=== PATIENT | male | born 1960 | race Caucasian/White ===

== ENCOUNTER 2023-07-19 14:30 | Inpatient (IN) | payer MEDICAID ==
[~2023-07-19] VITALS: Ht 165.1 cm; Wt 68.1 kg
[2023-07-19 15:33] LABS: HEMATOCRIT. 32.6 % (42.0-52.0); HEMOGLOBIN. 11.1 g/dL (14.0-18.0); MEAN CORPUSCULAR HEMOGLOBIN 30.8 pg (28.0-32.0); MEAN CORPUSCULAR HGB CONC 33.9 g/dL (31.0-37.0); MEAN PLATELET VOLUME 8.6 fl (7.4-10.4); PLATELET 84 x1000/uL (130-400); RED BLOOD CELL COUNT 3.59 mill/uL (4.7-6.1); RED CELL DISTRIBUTION WIDTH 14.4 % (11.6-14.6); WHITE BLOOD COUNT 5.2 x1000/uL (4.5-11.0)
[2023-07-19 15:47] LABS: DIFFERENTIAL COMMENT 1
[2023-07-19 15:55] LABS: ALANINE AMINOTRANSFERASE 21 IU/L (10-49); ALBUMIN 4.1 g/dL (3.2-4.8); ASPARTATE AMINOTRANSFERASE 30 IU/L (<34); BILIRUBIN TOTAL 1.1 mg/dL (0.1-1.0); CALCIUM 8.2 mg/dL (8.7-10.4); CARBON DIOXIDE 23 mEq/L (21-32); CHLORIDE 94 mEq/L (98-107); CREATINE KINASE 273 IU/L (46-171); GLUCOSE 103 mg/dL (70-105); POTASSIUM 4.8 mEq/L (3.5-5.1); PROTEIN TOTAL 7.8 g/dL (6.0-8.3); SODIUM 136 mEq/L (136-145); TROPONIN I HIGH SENSITIVITY 51 ng/L (3.0-53); UREA NITROGEN BLOOD 41 mg/dL (9-23)
[2023-07-19 16:20] LABS: CREATININE 7.8 mg/dL (0.6-1.3)
[2023-07-19 16:26] LABS: PLATELET ESTIMATE DECREASED
[2023-07-19] MEDS ORDERED: SODIUM CHLORIDE 0.9% 500 ML IV ONE (17:45)
[2023-07-19] MEDS ORDERED: VANCOMYCIN 1G PREMIX 200 ML IV SCH (17:45)
[2023-07-19] MEDS ORDERED: CEFEPIME 1,000 MG in DEXTROSE 5% WATER 50 ML IV SCH (17:45)
[2023-07-20] VITALS (7 sets, daily range): BP systolic 116–152; BP diastolic 50–71; PULSE 81–92; RESP 16–26; TEMP 97.8–99.1
[2023-07-20] MEDS ORDERED: DEXTROSE 50% WATER 50ML SYRINGE IV PRN (06:30)
[2023-07-20] MEDS ORDERED: DOCUSATE SODIUM 250MG CAPSULE PO PRN (06:45)
[2023-07-20] MEDS ORDERED: CLONIDINE 0.1MG TABLET PO PRN (06:45)
[2023-07-20] MEDS: BLOOD SUGAR DIAGNOSTIC STRIP TEST SCH ×4 (06:49→20:31)
[2023-07-20] MEDS: INSULIN LISPRO 100 UNITS/ML SUBCUT SCH ×4 (07:20→20:32)
[2023-07-20 10:57] LABS: HEPATITIS B SURFACE ANTIGEN NEGATIVE (Negative); HEPATITIS C AB NON REACTIVE (Neg) (Negative)
[2023-07-20 11:53] LABS: HEMATOCRIT. 31.5 % (42.0-52.0); HEMOGLOBIN. 10.5 g/dL (14.0-18.0); MEAN CORPUSCULAR HEMOGLOBIN 29.7 pg (28.0-32.0); MEAN CORPUSCULAR HGB CONC 33.3 g/dL (31.0-37.0); MEAN CORPUSCULAR VOLUME 89.3 fL (80.0-94.0); MEAN PLATELET VOLUME 9.2 fl (7.4-10.4); PLATELET 88 x1000/uL (130-400); RED BLOOD CELL COUNT 3.52 mill/uL (4.7-6.1); RED CELL DISTRIBUTION WIDTH 14.5 % (11.6-14.6); WHITE BLOOD COUNT 4.4 x1000/uL (4.5-11.0)
[2023-07-20 11:57] LABS: DIFFERENTIAL COMMENT 1
[2023-07-20 11:59] LABS: CALCIUM 7.8 mg/dL (8.7-10.4); POTASSIUM 4.7 mEq/L (3.5-5.1)
[2023-07-20 12:31] LABS: CREATININE 9.9 mg/dL (0.6-1.3)
[2023-07-20 14:35] LABS: HEPATITIS A AB IGM NEGATIVE (Negative); HEPATITIS B CORE AB IGM NEGATIVE (Negative); HEPATITIS B SURFACE ANTIGEN NEGATIVE (Negative); HEPATITIS C AB NON REACTIVE (Neg) (Negative)
[2023-07-20 16:08] LABS: PLATELET ESTIMATE DECREASED
[2023-07-20 17:31] LABS: TROPONIN I HIGH SENSITIVITY 41 ng/L (3.0-53)
[2023-07-20] MEDS ORDERED: VANCOMYCIN 1G PREMIX 200 ML IV NR (18:00)
[2023-07-21] VITALS (14 sets, daily range): BP systolic 110–142; BP diastolic 63–76; PULSE 76–89; RESP 16–24; TEMP 98–99.4
[2023-07-21] MEDS: ACETAMINOPHEN 325MG TABLET PO PRN ×3 (03:17→22:30)
[2023-07-21] MEDS: BLOOD SUGAR DIAGNOSTIC STRIP TEST SCH ×4 (06:14→21:00)
[2023-07-21 06:53] LABS: HEMATOCRIT. 30.8 % (42.0-52.0); HEMOGLOBIN. 9.9 g/dL (14.0-18.0); MEAN CORPUSCULAR HEMOGLOBIN 29.6 pg (28.0-32.0); MEAN CORPUSCULAR HGB CONC 32.3 g/dL (31.0-37.0); MEAN CORPUSCULAR VOLUME 91.6 fL (80.0-94.0); MEAN PLATELET VOLUME 9.6 fl (7.4-10.4); PLATELET 90 x1000/uL (130-400); RED BLOOD CELL COUNT 3.37 mill/uL (4.7-6.1); WHITE BLOOD COUNT 4.4 x1000/uL (4.5-11.0)
[2023-07-21] MEDS: INSULIN LISPRO 100 UNITS/ML SUBCUT SCH ×4 (07:20→21:00)
[2023-07-21 07:30] LABS: CALCIUM 7.8 mg/dL (8.7-10.4); POTASSIUM 4.5 mEq/L (3.5-5.1)
[2023-07-21 07:37] LABS: DIFFERENTIAL COMMENT 1
[2023-07-21 09:52] LABS: PROTHROMBIN TIME 10.5 sec (9.6-11.0)
[2023-07-21] MEDS ORDERED: LIDOCAINE HCL 1% 10 MG/ML 10ML VIAL ONE (12:18)
[2023-07-21] MEDS: CALCIUM ACETATE 667MG CAPSULE PO SCH ×2 (12:20→17:20)
[2023-07-21 16:47] LABS: PLATELET ESTIMATE DECREASED
[2023-07-21] MEDS: LACTOBACILLUS GG CAPSULE PO SCH (21:35)
[2023-07-22] VITALS (7 sets, daily range): BP systolic 108–147; BP diastolic 54–82; PULSE 74–82; RESP 14–22; TEMP 97.5–98.6
[2023-07-22] MEDS: BLOOD SUGAR DIAGNOSTIC STRIP TEST SCH ×4 (06:50→20:47)
[2023-07-22] MEDS: INSULIN LISPRO 100 UNITS/ML SUBCUT SCH ×4 (07:20→22:02)
[2023-07-22] MEDS: LACTOBACILLUS GG CAPSULE PO SCH (09:07)
[2023-07-22] MEDS: CALCIUM ACETATE 667MG CAPSULE PO SCH ×3 (09:07→17:57)
[2023-07-22 10:03] LABS: BASOPHILS % 0.9 % (0.0-2.0); HEMATOCRIT. 34.1 % (42.0-52.0); HEMOGLOBIN. 10.9 g/dL (14.0-18.0); LYMPHOCYTES % 12.7 % (20.0-50.0); MEAN CORPUSCULAR HEMOGLOBIN 29.5 pg (28.0-32.0); MEAN CORPUSCULAR HGB CONC 32.1 g/dL (31.0-37.0); MEAN CORPUSCULAR VOLUME 92.1 fL (80.0-94.0); MEAN PLATELET VOLUME 9.8 fl (7.4-10.4); MONOCYTES % 10.5 % (2.0-8.0); NEUTROPHILS % 73.9 % (40.0-76.0); PLATELET 139 x1000/uL (130-400); RED BLOOD CELL COUNT 3.71 mill/uL (4.7-6.1); RED CELL DISTRIBUTION WIDTH 14.2 % (11.6-14.6); WHITE BLOOD COUNT 6.1 x1000/uL (4.5-11.0)
[2023-07-22 10:24] LABS: CALCIUM 8.5 mg/dL (8.7-10.4); POTASSIUM 4.3 mEq/L (3.5-5.1)
[2023-07-22 10:27] LABS: CREATININE 9.6 mg/dL (0.6-1.3)
[2023-07-23] VITALS: BP 130/67; PULSE 74; RESP 18; TEMP 97.2
[2023-07-23 04:00] VITALS: BP 157/83; PULSE 74; RESP 19; TEMP 97.8
[2023-07-23] MEDS: BLOOD SUGAR DIAGNOSTIC STRIP TEST SCH ×4 (06:39→21:00)
[2023-07-23] MEDS: CALCIUM ACETATE 667MG CAPSULE PO SCH ×3 (06:40→17:50)
[2023-07-23] MEDS: INSULIN LISPRO 100 UNITS/ML SUBCUT SCH ×4 (06:44→21:00)
[2023-07-23 07:11] LABS: BASOPHILS % 0.6 % (0.0-2.0); EOSINOPHILS % 3.4 % (0.0-5.0); HEMATOCRIT. 30.7 % (42.0-52.0); LYMPHOCYTES % 15.7 % (20.0-50.0); MEAN CORPUSCULAR HEMOGLOBIN 29.7 pg (28.0-32.0); MEAN CORPUSCULAR HGB CONC 32.4 g/dL (31.0-37.0); MEAN CORPUSCULAR VOLUME 91.5 fL (80.0-94.0); MEAN PLATELET VOLUME 9.2 fl (7.4-10.4); MONOCYTES % 12.7 % (2.0-8.0); NEUTROPHILS % 67.6 % (40.0-76.0); PLATELET 144 x1000/uL (130-400); RED BLOOD CELL COUNT 3.36 mill/uL (4.7-6.1); RED CELL DISTRIBUTION WIDTH 14.2 % (11.6-14.6); WHITE BLOOD COUNT 5.7 x1000/uL (4.5-11.0)
[2023-07-23 07:38] LABS: CALCIUM 8.3 mg/dL (8.7-10.4); POTASSIUM 4.4 mEq/L (3.5-5.1)
[2023-07-23 08:00] VITALS: BP 142/66; PULSE 72; RESP 18; TEMP 97.7
[2023-07-23] MEDS: LACTOBACILLUS GG CAPSULE PO SCH (08:40)
[2023-07-23 12:00] VITALS: BP 124/61; PULSE 79; RESP 19; TEMP 95.6
[2023-07-23 16:00] VITALS: BP 126/62; PULSE 74; RESP 19; TEMP 96.9
[2023-07-23 20:00] VITALS: BP 139/73; PULSE 75; RESP 19; TEMP 98.2
[2023-07-24] VITALS: BP 147/81; PULSE 74; RESP 18; TEMP 96.7
[2023-07-24 04:00] VITALS: BP 135/66; PULSE 72; RESP 19; TEMP 96.3
[2023-07-24] MEDS: BLOOD SUGAR DIAGNOSTIC STRIP TEST SCH ×4 (07:20→21:00)
[2023-07-24] MEDS: INSULIN LISPRO 100 UNITS/ML SUBCUT SCH ×4 (07:34→21:00)
[2023-07-24 08:00] VITALS: BP 155/74; PULSE 19; RESP 19; TEMP 97.5
[2023-07-24] MEDS: CALCIUM ACETATE 667MG CAPSULE PO SCH ×3 (08:41→17:08)
[2023-07-24] MEDS: LACTOBACILLUS GG CAPSULE PO SCH (08:41)
[2023-07-24] MEDS ORDERED: MIDAZOLAM HCL 5 MG/5 ML VIAL ONE (09:29)
[2023-07-24] MEDS ORDERED: LIDOCAINE 2% 6ML GLYDO MM ONE (09:29)
[2023-07-24] MEDS ORDERED: FENTANYL CITRATE/PF 50MCG/ML 2ML VIAL ONE (09:29)
[2023-07-24] MEDS ORDERED: TETRACAINE/BENZOCAINE/BUTAMBEN 20 GM SPRAY MM ONE (09:29)
[2023-07-24 12:00] VITALS: BP 138/63; PULSE 19; RESP 19; TEMP 97.5
[2023-07-24 16:00] VITALS: BP 162/82; PULSE 77; RESP 19; TEMP 97
[2023-07-24 20:00] VITALS: BP 137/63; PULSE 67; RESP 18; TEMP 96.6
[2023-07-25] VITALS (15 sets, daily range): BP systolic 107–178; BP diastolic 46–83; PULSE 64–87; RESP 14–20; TEMP 97.7–98.6
[2023-07-25] MEDS: BLOOD SUGAR DIAGNOSTIC STRIP TEST SCH ×4 (07:03→21:00)
[2023-07-25 07:42] LABS: BASOPHILS % 0.9 % (0.0-2.0); EOSINOPHILS % 3.7 % (0.0-5.0); HEMATOCRIT. 28.4 % (42.0-52.0); HEMOGLOBIN. 9.5 g/dL (14.0-18.0); LYMPHOCYTES % 18.8 % (20.0-50.0); MEAN CORPUSCULAR HEMOGLOBIN 29.9 pg (28.0-32.0); MEAN CORPUSCULAR HGB CONC 33.4 g/dL (31.0-37.0); MEAN CORPUSCULAR VOLUME 89.5 fL (80.0-94.0); MEAN PLATELET VOLUME 8.2 fl (7.4-10.4); MONOCYTES % 10.7 % (2.0-8.0); NEUTROPHILS % 65.9 % (40.0-76.0); PLATELET 232 x1000/uL (130-400); RED BLOOD CELL COUNT 3.17 mill/uL (4.7-6.1); RED CELL DISTRIBUTION WIDTH 13.7 % (11.6-14.6); WHITE BLOOD COUNT 6.2 x1000/uL (4.5-11.0)
[2023-07-25 07:48] LABS: CALCIUM 8.1 mg/dL (8.7-10.4); POTASSIUM 5.2 mEq/L (3.5-5.1)
[2023-07-25] MEDS: INSULIN LISPRO 100 UNITS/ML SUBCUT SCH ×4 (07:50→21:00)
[2023-07-25] MEDS: CALCIUM ACETATE 667MG CAPSULE PO SCH ×3 (07:50→17:50)
[2023-07-25 08:00] LABS: CREATININE 13.7 mg/dL (0.6-1.3)
[2023-07-25] MEDS: LACTOBACILLUS GG CAPSULE PO SCH (09:00)
[2023-07-25] MEDS ORDERED: LIDOCAINE HCL 1% 10 MG/ML 10ML VIAL ONE ×2 (12:29→12:30)
[2023-07-25] MEDS ORDERED: FENTANYL CITRATE/PF 50MCG/ML 2ML VIAL ONE (15:27)
[2023-07-25] MEDS ORDERED: IOHEXOL-300 50 ML BOTTLE IV ONE (15:43)
[2023-07-25] MEDS ORDERED: FENTANYL CITRATE/PF 50MCG/ML 2ML VIAL IV NR (15:45)
[2023-07-25] MEDS ORDERED: VANCOMYCIN 750MG PREMIX 150 ML IV NR (18:00)
[2023-07-25] MEDS: CEFAZOLIN 1000MG PREMIX 50 ML IV SCH ×2 (18:30→19:27)
[2023-07-26] VITALS (13 sets, daily range): BP systolic 127–170; BP diastolic 70–84; PULSE 66–78; RESP 16–18; TEMP 97.4–98.2; O2SAT 97
[2023-07-26] MEDS: BLOOD SUGAR DIAGNOSTIC STRIP TEST SCH ×2 (07:20→13:11)
[2023-07-26 07:38] LABS: BASOPHILS % 0.9 % (0.0-2.0); HEMATOCRIT. 27.6 % (42.0-52.0); HEMOGLOBIN. 9.1 g/dL (14.0-18.0); LYMPHOCYTES % 18.5 % (20.0-50.0); MEAN CORPUSCULAR HEMOGLOBIN 29.5 pg (28.0-32.0); MEAN CORPUSCULAR HGB CONC 32.8 g/dL (31.0-37.0); MEAN CORPUSCULAR VOLUME 89.7 fL (80.0-94.0); MONOCYTES % 10.7 % (2.0-8.0); NEUTROPHILS % 66.9 % (40.0-76.0); PLATELET 259 x1000/uL (130-400); RED BLOOD CELL COUNT 3.08 mill/uL (4.7-6.1); RED CELL DISTRIBUTION WIDTH 13.8 % (11.6-14.6); WHITE BLOOD COUNT 6.4 x1000/uL (4.5-11.0)
[2023-07-26] MEDS: CALCIUM ACETATE 667MG CAPSULE PO SCH ×2 (07:50→13:13)
[2023-07-26] MEDS: INSULIN LISPRO 100 UNITS/ML SUBCUT SCH ×2 (07:50→12:50)
[2023-07-26 07:53] LABS: CALCIUM 8.3 mg/dL (8.7-10.4); POTASSIUM 5.6 mEq/L (3.5-5.1)
[2023-07-26 08:00] LABS: CREATININE 14.9 mg/dL (0.6-1.3)
[2023-07-26] MEDS: LACTOBACILLUS GG CAPSULE PO SCH (10:36)
[2023-07-26] MEDS ORDERED: CALC667C PO (11:10)
== END 2023-07-26 15:10 | disposition home or self-care (01) | DRG 721 ==
LOC: ER 14:38 → MICUSO 19:13 → EDBEDREQ 19:38 → EDBEDREQTM 19:38 → 3WST 07-20 01:47 → 6EST 07-22 18:27
PROVIDERS: ADMIT Internal Medicine; ATTEND Internal Medicine
PROC: 0JPT3XZ Removal of Tunneled Vascular Access Device from Trunk Subcutaneous Tissue and Fascia, Percutaneous Approach (ICD-10-PCS; principal; 2023-07-21)
PROC: 5A1D70Z Performance of Urinary Filtration, Intermittent, Less than 6 Hours Per Day (ICD-10-PCS; 2023-07-21)
PROC: B246ZZ4 Ultrasonography of Right and Left Heart, Transesophageal (ICD-10-PCS; 2023-07-24)
PROC: 0JH63XZ Insertion of Tunneled Vascular Access Device into Chest Subcutaneous Tissue and Fascia, Percutaneous Approach (ICD-10-PCS; 2023-07-25)
PROC: 02HV33Z Insertion of Infusion Device into Superior Vena Cava, Percutaneous Approach (ICD-10-PCS; 2023-07-25)
PROC: B548ZZA Ultrasonography of Superior Vena Cava, Guidance (ICD-10-PCS; 2023-07-25)
PROC: B5181ZA Fluoroscopy of Superior Vena Cava using Low Osmolar Contrast, Guidance (ICD-10-PCS; 2023-07-25)
PROC: 5A1D70Z Performance of Urinary Filtration, Intermittent, Less than 6 Hours Per Day (ICD-10-PCS; 2023-07-26)
DX: T80.211A Bloodstream infection due to central venous catheter, initial encounter (principal); A41.02 Sepsis due to Methicillin resistant Staphylococcus aureus; N18.6 End stage renal disease; D69.6 Thrombocytopenia, unspecified; I12.0 Hypertensive chronic kidney disease with stage 5 chronic kidney disease or end stage renal disease; E11.22 Type 2 diabetes mellitus with diabetic chronic kidney disease; D64.9 Anemia, unspecified; I34.81 Nonrheumatic mitral (valve) annulus calcification; M47.814 Spondylosis without myelopathy or radiculopathy, thoracic region; M48.00 Spinal stenosis, site unspecified; R68.89 Other general symptoms and signs; R74.8 Abnormal levels of other serum enzymes; R94.4 Abnormal results of kidney function studies; Z79.899 Other long term (current) drug therapy; Z91.158 Patient's noncompliance with renal dialysis for other reason; Z99.2 Dependence on renal dialysis; Y84.8 Other medical procedures as the cause of abnormal reaction of the patient, or of later complication, without mention of misadventure at the time of the procedure; Y92.89 Other specified places as the place of occurrence of the external cause
CPT/HCPCS: 36415; 36558; 36589; 71045; 72128; 72131; 76937; 77001; 80048; 80053; 80202; 82550; 82962; 83605; 83880; 84145; 84484; 85025; 86705; 86709; 87070; 87077; 87186; 87340; 90935; 93005; 93306; 93312; 99152; 99153; 99291; C1725; C1750; C1769; J0690; J0692; J1642; J1815; J2250; J3010; J3370; J3490; J7040; J7060; Q9967; G0500